=== PATIENT | female | born 1990 | race Caucasian/White ===

== ENCOUNTER 2022-01-30 12:05 | Emergency (ER) | payer BC ==
[2022-01-30 13:09] LABS: ESTIMATED GFR 87 mL/min (>60); TROPONIN I HIGH SENSITIVITY 13.2 pg/mL (<=60.3)
[2022-01-30] MEDS ORDERED: LORazepam 1 MG Tab PO ONE (13:40)
== END 2022-01-30 13:54 | disposition home or self-care (01) ==
LOC: JP.ED 12:05
DX: R07.89 Other chest pain (principal); R06.4 Hyperventilation; Z86.16 Personal history of COVID-19
CPT/HCPCS: 36415; 71046; 80053; 84484; 85025; 99285; A9270